=== PATIENT | male | born 1980 | race Caucasian/White ===

== ENCOUNTER 2020-10-19 02:50 | Emergency (ER) | payer SELFPAY ==
[~2020-10-19] VITALS: Ht 170.2 cm; Wt 115.2 kg
[2020-10-19 03:09] VITALS: BP 153/90
--- NOTE | 2020-10-19 03:15 | NUR ---
AMBULATED PT TO RM09.
[2020-10-19] MEDS ORDERED: ALUMINUM HYD/MAG/SIMETHICONE 30 ML, DICYCLOMINE HCL LIQUID 20 MG, LIDOCAINE VISCOUS 2% ... PO ONE ×3 (03:20)
[2020-10-19] MEDS ORDERED: ONDANSETRON 4 MG ODT PO ONE (03:20)
[2020-10-19] MEDS ORDERED: PANTOPRAZOLE 40 MG TABEC PO ONE (03:20)
--- NOTE | 2020-10-19 03:30 | NUR ---
PT REFUSED EKG AND REFUSED MEDICATIONS. ERMD MADE AWARE.
[2020-10-19 03:34] VITALS: BP 153/90
--- NOTE | 2020-10-19 03:34 | NUR ---
PATIENT ELOPED FROM FACILITY. DISCHARGE INSTRUCTIONS NOT GIVEN TO PATIENT. DR. HAQUE NOTIFIED.
[2020-10-19] MEDS ORDERED: PANT40EC PO (04:26)
== END 2020-10-19 03:36 | disposition left against medical advice (07) ==
LOC: MED 02:50
DX: R00.2 Palpitations (principal); K21.9 Gastro-esophageal reflux disease without esophagitis; I10 Essential (primary) hypertension
CPT/HCPCS: 99281; 99283

== ENCOUNTER 2020-10-19 03:48 | Emergency (ER) | payer SELFPAY ==
[~2020-10-19] VITALS: Ht 170.2 cm; Wt 115.2 kg
[2020-10-19 04:20] VITALS: BP 150/90
--- NOTE | 2020-10-19 04:20 | NUR ---
PT ASSESSED BY ERMD IN TRIAGE
--- NOTE | 2020-10-19 04:20 | NUR ---
40 Y/O MALE C/O WAKING UP TO HEART PALPITATION. (-) CHEST PAIN. (-) N/V. HE STATES EATING A LOT OF BEEF AND POTATOS LAST NIGHT. HE HAS BEEN BURPING EVERSINCE. LBM 10/18. PMHX: NONE NKA
[2020-10-19] MEDS ORDERED: PANT40EC PO (04:26)
[2020-10-19 04:32] VITALS: BP 150/90
--- NOTE | 2020-10-19 04:32 | NUR ---
Patient discharged with v/s stable. Written and verbal after care instructions given and explained. Patient alert, oriented and verbalized understanding of instructions. Ambulatory with steady gait. All questions addressed prior to discharge. ID band removed. Patient advised to follow up with PMD. Rx of PROTONIX given. Patient educated on indication of medication including possible reaction and side effects. Opportunity to ask questions provided and answered.
== END 2020-10-19 04:20 | disposition home or self-care (01) ==
LOC: MED 03:48
DX: K21.9 Gastro-esophageal reflux disease without esophagitis (principal); R00.2 Palpitations
CPT/HCPCS: 99283